=== PATIENT | female | born 1970 | race African-American/Black ===

== ENCOUNTER → 2016-11-19 | Outpatient (CLI) | payer OTHER ==
[~2016-11-19] MED LIST: HYDR-2768 PO; LOSA50TA PO; POTA-243 PO; TRAM100T19 PO; VERA120T3 PO
[2016-11-19 07:28] LABS: AUTOMATED NEUTROPHIL # 3.3 TH/MM3 (1.8-7.7); BASOPHIL % 0.4 % (0.0-2.0); EOSINOPHIL # 0.1 TH/MM3 (0-0.4); EOSINOPHIL % 2.2 % (0.0-4.0); HEMATOCRIT 35.6 % (35.0-46.0); HEMO FLAGS DIFF FINAL; LYMPH % 36.3 % (9.0-44.0); LYMPHOCYTE # 2.3 TH/MM3 (1.0-4.8); MEAN CORPUSCULAR HEMOGLOBIN 27.3 PG (27.0-34.0); MEAN CORPUSCULAR HGB CONC 32.9 % (32.0-36.0); MONO % 8.5 % (0.0-8.0); NEUT % 52.6 % (16.0-70.0); PLATELET COUNT 307 TH/MM3 (150-450); RED BLOOD COUNT 4.29 MIL/MM3 (4.00-5.30); RED CELL DISTRIBUTION WIDTH 13.7 % (11.6-17.2); WHITE BLOOD COUNT 6.3 TH/MM3 (4.0-11.0)
[2016-11-19 07:30] LABS: APTT (PATIENT) 28.7 SEC (24.3-30.1)
[2016-11-19 07:49] LABS: ALT (GPT) 21 U/L (10-53); ANION GAP 7 MEQ/L (5-15); AST (GOT) 9 U/L (15-37); BICARBONATE 29.9 MEQ/L (21.0-32.0); BLOOD UREA NITROGEN 12 MG/DL (7-18); CHLORIDE 105 MEQ/L (98-107); GLOMERULAR FILTRATION RATE 120 ML/MIN (>89); GLUCOSE,FASTING 102 MG/DL (74-99); POTASSIUM 3.8 MEQ/L (3.5-5.1); SODIUM (NA) 142 MEQ/L (136-145)
[2016-11-19 07:59] LABS: ALKALINE PHOSPHATASE 57 U/L (45-117); HDL CHOLESTEROL 90.7 MG/DL (40.0-60.0); LDL CHOLESTEROL 56 MG/DL (0-99); TOTAL BILIRUBIN ADULT 0.4 MG/DL (0.2-1.0)
[2016-11-19 12:06] LABS: HEMOGLOBIN A1b 0.7 %; HEMOGLOBIN F 0.7 %; HEMOGLOBIN LA1C 1.9 %; HEMOGLOBIN P3 3.3 %
== END ==
LOC: CLAB 06:55
PROVIDERS: ATTEND Family Medicine
DX: Z00.00 Encounter for general adult medical examination without abnormal findings (principal)
CPT/HCPCS: 36415; 80053; 80061; 83036; 84443; 85025; 85610; 85730

== ENCOUNTER 2017-06-03 19:58 | Emergency (ER) | payer OTHER ==
[2017-06-03 20:01] VITALS: BP 236/109; PULSE 80; RESP 20; TEMP 98.6; O2SAT 98
[2017-06-03 20:10] VITALS: BP 183/86; PULSE 78; RESP 16; O2SAT 97
[2017-06-03] MEDS ORDERED: ACETAMINOPHEN/HYDROcodone 325 MG/5 MG TAB PO ONE (20:15)
[2017-06-03] MEDS ORDERED: BUPIVACAINE HCL PF 0.5% 10 ML VIAL INFIL ONE (20:15)
[2017-06-03] MEDS ORDERED: LIDOCAINE HCL 1% 50 ML VIAL INFIL ONE (20:15)
--- NOTE | 2017-06-03 20:22 | PD ---
HPI Chief Complaint: Injury Time Seen by Provider: 20:07 Travel History International Travel<30 days: No Contact w/Intl Traveler<30days: No Traveled to known affect area: No History of Present Illness HPI Skin otherwise healthy 46 year-old woman who presents to the emergency department with right foot injury. She states she was cleaning a lawnmower when her foot went underneath the lawnmower. She has injuries to the tops of the first and second toes. She has otherwise been feeling generally well and healthy. This happened just prior to arrival. No other complaints. History Past Medical History Narrative Medical Hypertension : 2 Para: 2 Social History Alcohol Use: Yes (SOCIAL) Tobacco Use: No Allergies-Medications (Allergen,Severity, Reaction): Coded Allergies: No Known Allergies (Verified , 06/09/16) Reported Meds & Prescriptions Reported Meds & Active Scripts Active Reported Potassium Chloride ER (Potassium Chloride) 10 Meq Cap 10 Meq PO DAILY Verapamil ER (Verapamil HCl) 180 Mg Tab 180 Mg PO DAILY Losartan (Losartan Potassium) 50 Mg Tab 50 Mg PO DAILY Hydrochlorothiazide 25 Mg Tab 25 Mg PO DAILY Review of Systems Except as stated in HPI: all other systems reviewed are Neg Physical Exam Narrative GENERAL: Well-appearing 46 year-old woman, no acute distress. SKIN: Warm and dry. CARDIOVASCULAR: Warm and well perfused. RESPIRATORY: Normal rate and effort. MUSCULOSKELETAL: Focused examination of the right foot reveals that the right great toe has a laceration across the top of the nail the nail is missing, and the second toe also is missing the toenail. There is minimal trickling bleeding. There is no obvious bony deformity or other amputation. NEUROLOGICAL: Awake and alert. No gross deficits. Data Data Last Documented VS Vital Signs Date Time Temp Pulse Resp B/P Pulse Ox O2 Delivery O2 Flow Rate FiO2 06/03/17 20:01 98.6 80 20 236/109 98 Orders Foot, Complete (Pcr2cvv) (06/03/17 ) Acetamin-Hydrocod 325-5 Mg (Prosperity 5-325 (06/03/17 20:15) Lidocaine 1% Inj (50 Ml) (Xylocaine 1% I (06/03/17 20:15) Bupivacaine Pf 0.5% Inj (Marcaine Pf 0.5 (06/03/17 20:15) Iv Access Insert/Monitor (06/03/17 20:44) Ampicillin-Sulbactam Inj (Unasyn Inj) (06/03/17 20:45) Gelatin 12 Mm/7 Mm Top (Gelfoam 12 Mm/7 (06/03/17 21:30) MDM Medical Decision Making Medical Screen Exam Complete: Yes Emergency Medical Condition: Yes Differential Diagnosis Foot injury, toe injury, nail bed injury, other Narrative Course Medical decision making INITIAL: 46 year-old woman who presents to the emergency department complaining of right foot injury. She looks well. Injury appears to be soft tissue related to the top of the foot. We'll do an x-ray of the foot. We'll block the toes and wash them out really well. She may need nail bed laceration repair. FINAL: Patient with lawnmower injury to the distal first and second toe. She looks like she really just double the top layer of skin second toe. The nail fold and nail bed appears to be completely missing. She is soft tissue there. There is some trickling bleeding. There is no exposed bone. I irrigated the wound with copious amounts of sterile saline. We placed a Gelfoam pad on the top of both soft tissue injuries. Bulky dressing was applied. She will likely have some continued oozing. We'll keep the leg elevated for the next 48 hours. She was given a hard sole shoe. We'll place her on antibiotics. She had a dose of IV Unasyn here. We'll recommend that she follow-up with podiatry for repeat evaluation. Diagnosis Primary Impression: Soft tissue injury of left foot Additional Impression: Fracture of distal phalanx of toe of left foot Additional Instructions: Keep leg elevated above your heart for the next 48 hours. Change bandage once a day. Take antibiotics as prescribed. Take Lortab as needed for pain. Follow-up with Dr. Cary next week. Return to the emergency department for any significant ongoing bleeding, worsening pain, fevers or drainage from the wound, or any other new or worsening symptoms. Med/Other Pt SpecificInfo: Prescription(s) given Scripts Amoxicillin-Clavulanate (Augmentin)875-125 Mg Tab1 Tab PO BID 7 Days Ref 0 Prov:Ricardo Jenkins MD 06/03/17 Hydrocodone-Acetaminophen (Lortab)5-325 Mg Tab1-2 Tab PO Q6H PRN (PAIN) #20 TAB Prov:Ricardo Jenkins MD 06/03/17 Disposition: 01 DISCHARGE HOME Condition: Stable Ricardo Jenkins MD Jun 03, 2017 20:22
[2017-06-03] MEDS ORDERED: LOSA50TA PO (20:40)
[2017-06-03] MEDS ORDERED: HYDR25TA5 PO (20:40)
[2017-06-03] MEDS ORDERED: POTA10CA PO (20:40)
[2017-06-03] MEDS ORDERED: VERA1TAB10 PO (20:40)
--- NOTE | 2017-06-03 20:40 | RADRPT ---
EXAM DATE/TIME: 06/03/2017 20:30 [facility] COMPARISON: No previous studies available for comparison. INDICATIONS : Lawnmower injury. Laceration to top of foot. MEDICAL HISTORY : None. SURGICAL HISTORY : None. ENCOUNTER: Initial ACUITY: 1 day PAIN SCORE: 9/10 LOCATION: Right lateral FINDINGS: There is comminuted fracturing of the first digit distal phalangeal tuft and neck with associated sof t tissue injury. There is plantar displacement of the distal fracture fragments by one shaft diameter and overriding. CONCLUSION: Comminuted and displaced fracture the first digit distal phalanx with associated soft tissue injury. J Luis Mckeon MD on June 03, 2017 at 20:38 Board Certified Radiologist. This report was verified electronically.
[2017-06-03] MEDS ORDERED: AMPICILLIN-SULBACTAM INJ 3 GM in SODIUM CHLORIDE 0.9% INJ 100 ML IV ONE (20:45)
[2017-06-03] MEDS ORDERED: GELATIN 12 MM/7 MM FOAM TOPICAL ONE (21:30)
[2017-06-03] MEDS ORDERED: AUGM875T3 PO (21:35)
[2017-06-03] MEDS ORDERED: HYDR-3533 PO (21:35)
[2017-06-03] MEDS ORDERED: TETANUS/DIPHTHERIA TOXOID ADULT 0.5 ML VIAL IM ONE (21:45)
[2017-06-03 22:36] VITALS: BP 175/72
== END 2017-06-03 22:41 | disposition home or self-care (01) ==
LOC: PHED 19:58
DX: S92.422A Displaced fracture of distal phalanx of left great toe, initial encounter for closed fracture (principal); X58.XXXA Exposure to other specified factors, initial encounter; Y93.89 Activity, other specified; Z23 Encounter for immunization
CPT/HCPCS: 73630; 90471; 90714; 96365; 99284; J0295; L3260

== ENCOUNTER 2017-06-05 16:33 | Emergency (ER) | payer OTHER ==
[~2017-06-05] VITALS: Ht 167.6 cm; Wt 96.5 kg
[~2017-06-05 16:33] MED LIST changes: +AUGM875T3 PO; -HYDR-2768 PO; +HYDR-3533 PO; +HYDR25TA5 PO; -POTA-243 PO; +POTA10CA PO; -TRAM100T19 PO; -VERA120T3 PO; +VERA1TAB10 PO
[2017-06-05 16:39] VITALS: BP_SYST 210; BP_SYST 216; BP_DIAS 102; BP_DIAS 105; PULSE 65; RESP 14; TEMP 98.2; O2SAT 100
--- NOTE | 2017-06-05 17:31 | PD ---
HPI Chief Complaint: Wound/Suture/Staple Re-Check Time Seen by Provider: 17:11 Travel History International Travel<30 days: No Contact w/Intl Traveler<30days: No Traveled to known affect area: No History of Present Illness HPI 46-year-old female is seen in emergency room for recheck. Patient was seen in emergency room 2 days ago with open fracture right big toe and soft tissue injury to right second toe. The Injury from a lawnmower. Patient was given Unasyn IV and prescription for Augmentin and hydrocodone. Gelfoam and dressing applied to the right first and second toes. Patient states that she has some oozing blood from the wound for the past 2 days. Patient has been taking antibiotics as directed. PFSH Past Medical History Heart Rhythm Problems: No Cancer: No Cardiac Catheterization: No Cardiovascular Problems: No High Cholesterol: No Congestive Heart Failure: No Diabetes: No Diminished Hearing: No Endocrine: No Gastrointestinal Disorders: No Genitourinary: No Hepatitis: No Hiatal Hernia: No Heparin Induced Thrombocytopen: No Hypertension: Yes Immune Disorder: No Musculoskeletal: Yes (BACK) Neurologic: No Psychiatric: No Reproductive: Yes Respiratory: No Thyroid Disease: No Tetanus Vaccination: < 5 Years Influenza Vaccination: No ?: Not : 2 Para: 2 Past Surgical History AICD: No Body Medical Devices: NONE PER PT Coronary Artery Bypass Graft: No Hysterectomy: Yes Joint Replacement: No Oral Surgery: Yes (TONSILLECTOMY) Pacemaker: No Tonsillectomy: Yes Other Surgery: Yes (BREAST REDUCTION) Social History Alcohol Use: Yes (SOCIAL) Tobacco Use: No Substance Use: No Allergies-Medications (Allergen,Severity, Reaction): Coded Allergies: No Known Allergies (Verified , 06/05/17) Reported Meds & Prescriptions Reported Meds & Active Scripts Active Augmentin (Amoxicillin-Clavulanate) 875-125 Mg Tab 1 Tab PO BID 7 Days Lortab (Hydrocodone-Acetaminophen) 5-325 Mg Tab 1-2 Tab PO Q6H PRN Reported Potassium Chloride ER (Potassium Chloride) 10 Meq Cap 10 Meq PO DAILY Verapamil ER (Verapamil HCl) 180 Mg Tab 180 Mg PO DAILY Losartan (Losartan Potassium) 50 Mg Tab 50 Mg PO DAILY Hydrochlorothiazide 25 Mg Tab 25 Mg PO DAILY Review of Systems General / Constitutional: No: Fever Eyes: No: Visual changes HENT: No: Headaches Cardiovascular: No: Chest Pain or Discomfort Respiratory: No: Shortness of Breath Gastrointestinal: No: Abdominal Pain Genitourinary: No: Dysuria Musculoskeletal: Positive: Pain Skin: No Rash Neurologic: No: Weakness Psychiatric: No: Depression Endocrine: No: Polydipsia Hematologic/Lymphatic: No: Easy Bruising Physical Exam Narrative GENERAL: Well-nourished, well-developed patient. SKIN: Focused skin assessment warm/dry. HEAD: Normocephalic. EYES: No scleral icterus. No injection or drainage. NECK: Supple, trachea midline. No JVD or lymphadenopathy. CARDIOVASCULAR: Regular rate and rhythm without murmurs, gallops, or rubs. RESPIRATORY: Breath sounds equal bilaterally. No accessory muscle use. GASTROINTESTINAL: Abdomen soft, non-tender, nondistended. MUSCULOSKELETAL: No cyanosis, or edema. BACK: Nontender without obvious deformity. No CVA tenderness. Data Data Last Documented VS Vital Signs Date Time Temp Pulse Resp B/P Pulse Ox O2 Delivery O2 Flow Rate FiO2 06/05/17 16:39 98.2 65 14 216/105 100 Room Air 210/102 Orders Lidocaine 1% Inj (50 Ml) (Xylocaine 1% I (06/05/17 17:45) Bupivacaine Pf 0.5% Inj (Marcaine Pf 0.5 (06/05/17 17:45) Ciprofloxacin (Cipro) (06/05/17 18:15) Wound Culture And Gram Stain (06/05/17 18:17) [facility] Medical Decision Making Medical Screen Exam Complete: Yes Emergency Medical Condition: Yes Medical Record Reviewed: Yes Differential Diagnosis Differential diagnosis including compound fracture, soft tissue injury. Narrative Course 46-year-old female with right big toe and second toe injury. I spoke with Dr. Cary. Advised Augmentin and Cipro. Follow-up in the office. Wound culture obtained from the right big toe. Diagnosis Primary Impression: Soft tissue injury of toe Qualified Code: S99.921D - Soft tissue injury of toe, right, subsequent encounter Additional Impression: Fracture of right great toe Qualified Code: S92.421D - Closed displaced fracture of distal phalanx of right great toe with routine healing, subsequent encounter Patient Instructions: General Instructions Additional Instructions: Daily wound clean and dry. Take antibiotics including Cipro and Augmentin as directed. Follow-up with geriatric assistant. Med/Other Pt SpecificInfo: Prescription(s) given Scripts Ciprofloxacin (Cipro)500 Mg Qat630 Mg PO BID #20 TAB Prov:Osei Bal MD 06/05/17 Disposition: 01 DISCHARGE HOME Condition: Stable Osei Bal MD Jun 05, 2017 17:31
[2017-06-05] MEDS ORDERED: LIDOCAINE HCL 1% 50 ML VIAL INFIL ONE (17:45)
[2017-06-05] MEDS ORDERED: BUPIVACAINE HCL PF 0.5% 10 ML VIAL INFIL ONE (17:45)
[2017-06-05] MEDS ORDERED: CIPROFLOXACIN 500 MG TAB PO ONE (18:15)
[2017-06-05] MEDS ORDERED: CIPR-9 PO (18:40)
[2017-06-05 18:54] VITALS: BP 198/97; PULSE 64; RESP 16; O2SAT 100
--- NOTE | 2017-06-05 20:20 | EKG ---
Date Performed: 06/05/2017 Time Performed: 18:15:22 PTAGE: 46 years EKG: Sinus rhythm NORMAL ECG NO PREVIOUS TRACING DOCTOR: Olaf Angeles Interpretating Date/Time 06/05/2017 20:18:36
== END 2017-06-05 19:09 | disposition home or self-care (01) ==
LOC: PHED 16:33
DX: S99.921D Unspecified injury of right foot, subsequent encounter (principal); S92.421D Displaced fracture of distal phalanx of right great toe, subsequent encounter for fracture with routine healing; B96.89 Other specified bacterial agents as the cause of diseases classified elsewhere; I10 Essential (primary) hypertension; Z87.39 Personal history of other diseases of the musculoskeletal system and connective tissue; W45.8XXD Other foreign body or object entering through skin, subsequent encounter
CPT/HCPCS: 87070; 87077; 87186; 87205; 93005; 99283

== ENCOUNTER 2017-08-28 18:36 | Emergency (ER) | payer OTHER ==
[~2017-08-28] VITALS: Ht 167.6 cm; Wt 93.4 kg
[~2017-08-28 18:36] MED LIST changes: +CIPR-9 PO
[2017-08-28 18:45] VITALS: BP 181/89; PULSE 88; RESP 16; TEMP 98.3; O2SAT 100
[2017-08-28] MEDS ORDERED: SODIUM CHLOR 0.9% 1000 ML INJ 1,000 ML IV SCH (20:01)
[2017-08-28] MEDS ORDERED: ONDANSETRON HCL 4 MG/2 ML VIAL IVP ONE (20:15)
[2017-08-28] MEDS: SODIUM CHLORIDE 0.9% FLUSH 10 ML FLUSH IV FLUSH PRN ×2 (20:32→21:12)
[2017-08-28 20:35] VITALS: O2SAT 97
[2017-08-28 20:36] LABS: GLUCOSE,URINE NEG (NEG); KETONE, URINE 15 mg/dL (NEG); NITRITE,URINE NEG (NEG)
[2017-08-28 20:40] LABS: AUTOMATED NEUTROPHIL # 4.1 TH/MM3 (1.8-7.7); BASOPHIL % 0.4 % (0.0-2.0); BLOOD, URINE TRACE (NEG); EOSINOPHIL # 0.2 TH/MM3 (0-0.4); HEMATOCRIT 39.6 % (35.0-46.0); HEMO FLAGS DIFF FINAL; LYMPH % 38.7 % (9.0-44.0); LYMPHOCYTE # 3.2 TH/MM3 (1.0-4.8); MEAN CELL VOLUME 82.1 FL (80.0-100.0); MEAN CORPUSCULAR HGB CONC 31.6 % (32.0-36.0); MONO % 8.2 % (0.0-8.0); NEUT % 50.7 % (16.0-70.0); PLATELET COUNT 433 TH/MM3 (150-450); RED BLOOD COUNT 4.82 MIL/MM3 (4.00-5.30); RED CELL DISTRIBUTION WIDTH 13.4 % (11.6-17.2); WHITE BLOOD COUNT 8.2 TH/MM3 (4.0-11.0)
[2017-08-28 20:41] LABS: MUCUS URINE MOD /lpf (OCC); URINE COLOR AMBER (YELLW/STRAW)
[2017-08-28 20:42] LABS: CALCIUM OXALATE CRYSTALS,URINE MOD /hpf; SQUAMOUS EPITHELIAL CELL URINE > 8 /hpf (0-5)
[2017-08-28 20:44] LABS: COMMENT (UR) CULT NOT INDICATED; CULTURE IF INDICATED CULT NOT INDICATED; RBC, URINE 0-3 /hpf (0-3)
[2017-08-28 21:07] VITALS: BP 149/89; PULSE 73; RESP 18; TEMP 98.2; O2SAT 99
[2017-08-28 21:25] LABS: BICARBONATE 31.3 MEQ/L (21.0-32.0)
[2017-08-28 21:27] LABS: POTASSIUM 2.9 MEQ/L (3.5-5.1)
[2017-08-28] MEDS ORDERED: POTASSIUM CHLORIDE 20 MEQ CONTROLLED RELEASE TAB PO ONE (21:30)
--- NOTE | 2017-08-28 21:31 | PD ---
HPI Chief Complaint: General Weakness Time Seen by Provider: 19:52 Travel History International Travel<30 days: No Contact w/Intl Traveler<30days: No Traveled to known affect area: No History of Present Illness HPI 46 yo F c/o weakness for the past week. pt had influenza like many of family members. symptoms most c/w fatigue, less so with weakness. everyone else got better however patient has felt persistently weak, nauseated, and with concern for hypok and dehydration. no fever. no numbness/tinging. PFSH Past Medical History Heart Rhythm Problems: No Cancer: No Cardiac Catheterization: No Cardiovascular Problems: No High Cholesterol: No Congestive Heart Failure: No Diabetes: No Diminished Hearing: No Endocrine: No Gastrointestinal Disorders: No Genitourinary: No Hepatitis: No Hiatal Hernia: No Heparin Induced Thrombocytopen: No Hypertension: Yes Immune Disorder: No Musculoskeletal: Yes (BACK) Neurologic: No Psychiatric: No Reproductive: Yes Respiratory: No Thyroid Disease: No ?: Not : 2 Para: 2 Past Surgical History AICD: No Body Medical Devices: NONE PER PT Coronary Artery Bypass Graft: No Hysterectomy: Yes Joint Replacement: No Oral Surgery: Yes (TONSILLECTOMY) Pacemaker: No Tonsillectomy: Yes Other Surgery: Yes (BREAST REDUCTION) Social History Alcohol Use: Yes (SOCIAL) Tobacco Use: No Substance Use: No Allergies-Medications (Allergen,Severity, Reaction): Coded Allergies: No Known Allergies (Verified , 06/05/17) Reported Meds & Prescriptions Reported Meds & Active Scripts Active Lortab (Hydrocodone-Acetaminophen) 5-325 Mg Tab 1-2 Tab PO Q6H PRN Reported Potassium Chloride ER (Potassium Chloride) 10 Meq Cap 10 Meq PO DAILY Verapamil ER (Verapamil HCl) 180 Mg Tab 180 Mg PO DAILY Losartan (Losartan Potassium) 50 Mg Tab 50 Mg PO DAILY Hydrochlorothiazide 25 Mg Tab 25 Mg PO DAILY Review of Systems Except as stated in HPI: all other systems reviewed are Neg General / Constitutional: No: Fever Cardiovascular: No: Chest Pain or Discomfort Physical Exam Narrative GENERAL: 46 yo F, NAD, WNWD SKIN: Warm and dry. HEAD: Atraumatic. Normocephalic. EYES: Pupils equal and round. No scleral icterus. No injection or drainage. ENT: No nasal bleeding or discharge. Mucous membranes pink and moist. NECK: Trachea midline. No JVD. CARDIOVASCULAR: Regular rate and rhythm. RESPIRATORY: No accessory muscle use. Clear to auscultation. Breath sounds equal bilaterally. GASTROINTESTINAL: Abdomen soft, non-tender, nondistended. Hepatic and splenic margins not palpable. MUSCULOSKELETAL: Extremities without clubbing, cyanosis, or edema. No obvious deformities. NEUROLOGICAL: Awake and alert. No obvious cranial nerve deficits. Motor grossly within normal limits. Five out of 5 muscle strength in the arms and legs. Normal speech. PSYCHIATRIC: Appropriate mood and affect; insight and judgment normal. Data Data Last Documented VS Vital Signs Date Time Temp Pulse Resp B/P (MAP) Pulse Ox O2 Delivery O2 Flow Rate FiO2 08/28/17 21:08 Room Air 08/28/17 21:07 98.2 73 18 149/89 (109) 99 VS normal Orders Orders Basic Metabolic Panel (Bmp) (08/28/17 20:01) Complete Blood Count With Diff (08/28/17 20:01) Urinalysis - C+S If Indicated (08/28/17 20:) Iv Access Insert/Monitor (08/28/17 20:) Ecg Monitoring (08/28/17 20:01) Oximetry (08/28/17 20:01) Ondansetron Inj (Zofran Inj) (08/28/17 20:15) Sodium Chlor 0.9% 1000 Ml Inj (Ns 1000 M (08/28/17 20:01) Sodium Chloride 0.9% Flush (Ns Flush) (08/28/17 20:15) Potassium Chloride (Kcl) (08/28/17 21:30) Labs Laboratory Tests Test 08/28/17 20:15 White Blood Count 8.2 TH/MM3 Red Blood Count 4.82 MIL/MM3 Hemoglobin 12.5 GM/DL Hematocrit 39.6 % Mean Corpuscular Volume 82.1 FL Mean Corpuscular Hemoglobin 26.0 PG Mean Corpuscular Hemoglobin Concent 31.6 % Red Cell Distribution Width 13.4 % Platelet Count 433 TH/MM3 Mean Platelet Volume 8.9 FL Neutrophils (%) (Auto) 50.7 % Lymphocytes (%) (Auto) 38.7 % Monocytes (%) (Auto) 8.2 % Eosinophils (%) (Auto) 2.0 % Basophils (%) (Auto) 0.4 % Neutrophils # (Auto) 4.1 TH/MM3 Lymphocytes # (Auto) 3.2 TH/MM3 Monocytes # (Auto) 0.7 TH/MM3 Eosinophils # (Auto) 0.2 TH/MM3 Basophils # (Auto) 0.0 TH/MM3 CBC Comment DIFF FINAL Differential Comment Urine Color MARI Urine Turbidity SLIGHT Urine pH 6.0 Urine Specific [place] 1.031 Urine Protein 30 mg/dL Urine Glucose (UA) NEG mg/dL Urine Ketones 15 mg/dL Urine Occult Blood TRACE Urine Nitrite NEG Urine Bilirubin NEG Urine Leukocyte Esterase NEG Urine RBC 0-3 /hpf Urine Squamous Epithelial Cells > 8 /hpf Urine Calcium Oxalate Crystals MOD /hpf Urine Hyaline Casts 6-9 /lpf Urine Mucus MOD /lpf Microscopic Urinalysis Comment CULT NOT INDICATED Blood Urea Nitrogen 19 MG/DL Creatinine 1.10 MG/DL Random Glucose 111 MG/DL Calcium Level 9.4 MG/DL Sodium Level 139 MEQ/L Potassium Level 2.9 MEQ/L Chloride Level 100 MEQ/L Carbon Dioxide Level 31.3 MEQ/L Anion Gap 8 MEQ/L Estimat Glomerular Filtration Rate 65 ML/MIN MDM Medical Decision Making Medical Screen Exam Complete: Yes Emergency Medical Condition: Yes Medical Record Reviewed: Yes Differential Diagnosis hypok, dehydration, uti Narrative Course CBC & BMP Diagram 08/28/17 20:15 Calcium Level 9.4 UA: no UTI Potassium replenished Diagnosis Primary Impression: Hypokalemia Additional Impression: Fatigue Qualified Codes: R53.83 - Other fatigue Referrals: Primary Care Physician 2 days Additional Instructions: You have a choice when it comes to health care, and we are glad that you chose [facility]. Hopefully, we have met your expectations on today's visit. You are welcome to return to [facility] at any time, as we are committed to meeting the health care needs of our community. Med/Other Pt SpecificInfo: Prescription(s) given, No Change to Meds Disposition: 01 DISCHARGE HOME Condition: Stable Solo Sweeney MD Aug 28, 2017 21:31
[2017-08-28 22:24] VITALS: BP 142/83; PULSE 72; RESP 18; TEMP 98; O2SAT 99
== END 2017-08-28 22:32 | disposition home or self-care (01) ==
LOC: PHED 18:36
DX: E87.6 Hypokalemia (principal); R53.1 Weakness; I10 Essential (primary) hypertension
CPT/HCPCS: 80048; 81001; 85025; 96361; 96374; 99284; J2405; J7030

== ENCOUNTER → 2017-12-13 | Outpatient (CLI) | payer OTHER ==
[~2017-12-13] MED LIST changes: -AUGM875T3 PO; -CIPR-9 PO
[2017-12-13 07:53] LABS: AUTOMATED NEUTROPHIL # 3.2 TH/MM3 (1.8-7.7); BASOPHIL # 0.1 TH/MM3 (0-0.2); EOSINOPHIL # 0.3 TH/MM3 (0-0.4); EOSINOPHIL % 4.1 % (0.0-4.0); HEMATOCRIT 36.1 % (35.0-46.0); HEMOGLOBIN 11.7 GM/DL (11.6-15.3); LYMPH % 34.2 % (9.0-44.0); LYMPHOCYTE # 2.1 TH/MM3 (1.0-4.8); MEAN CELL VOLUME 83.2 FL (80.0-100.0); MEAN CORPUSCULAR HEMOGLOBIN 26.9 PG (27.0-34.0); MEAN CORPUSCULAR HGB CONC 32.3 % (32.0-36.0); MEAN PLATELET VOLUME 8.7 FL (7.0-11.0); MONO % 8.6 % (0.0-8.0); MONOCYTE # 0.5 TH/MM3 (0-0.9); NEUT % 52.1 % (16.0-70.0); PLATELET COUNT 285 TH/MM3 (150-450); RED BLOOD COUNT 4.34 MIL/MM3 (4.00-5.30); RED CELL DISTRIBUTION WIDTH 13.7 % (11.6-17.2); WHITE BLOOD COUNT 6.1 TH/MM3 (4.0-11.0)
[2017-12-13 08:21] LABS: ALBUMIN 3.9 GM/DL (3.4-5.0); ALT (GPT) 19 U/L (10-53); AST (GOT) 11 U/L (15-37); BICARBONATE 31.5 MEQ/L (21.0-32.0); BLOOD UREA NITROGEN 13 MG/DL (7-18); CALCIUM 9.1 MG/DL (8.5-10.1); CHLORIDE 102 MEQ/L (98-107); CHOLESTEROL 155 MG/DL (120-200); CREATININE 0.72 MG/DL (0.50-1.00); GLOMERULAR FILTRATION RATE 106 ML/MIN (>89); GLUCOSE,FASTING 97 MG/DL (74-99); MAGNESIUM 2.1 MG/DL (1.5-2.5); SODIUM (NA) 139 MEQ/L (136-145); TRIGLYCERIDES 35 MG/DL (42-150)
[2017-12-13 08:46] LABS: ALKALINE PHOSPHATASE 63 U/L (45-117); CHOLESTEROL/ HDL RATIO 1.91 RATIO; FOLATE 11.4 NG/ML (3.1-17.5); LDL CHOLESTEROL 67 MG/DL (0-99); TOTAL BILIRUBIN ADULT 0.4 MG/DL (0.2-1.0); TOTAL PROTEIN 7.8 GM/DL (6.4-8.2)
[2017-12-13 16:29] LABS: HEMOGLOBIN A1C 4.9 % (4.3-6.0)
== END ==
LOC: CLAB 07:31
PROVIDERS: ATTEND Family Medicine
DX: Z00.00 Encounter for general adult medical examination without abnormal findings (principal)
CPT/HCPCS: 36415; 80053; 80061; 82306; 82607; 82746; 83036; 83735; 84443; 85025

== ENCOUNTER → 2018-04-13 | Day surgery (SDC) | payer OTHER ==
[~2018-04-13] MED LIST changes: +AMLO10TA2 PO; +CLON0.1T PO; +IBUP-1129; +LIDOCAINE HCL 1% 30 ML VIAL INFIL ONE; +MIDAZOLAM HCL 2 MG/2 ML VIAL IV ONE; +PROPOFOL 200 MG/20 ML AMP IV ONE; +SODIUM CHLORIDE 0.9% 10 ML VIAL ONE; +TRIAMCINOLONE ACETONIDE 40 MG/ML VIAL NERV BLOCK ONE; +methylPREDNISolone ACETATE 80 MG/ML VIAL ONE
--- NOTE | 2018-04-13 10:29 | M6 ---
cc: Shelley Camara MD DATE: 04/13/2018 DATE OF PROCEDURE: 04/13/2018 PROCEDURE PERFORMED: Fluoroscopically guided L5-S1 interlaminar epidural steroid injection. History and physical was completed and signed. Consent was signed. Procedure site was marked. Medications were listed and reconciled. Pain score was recorded. Allergies were noted. Time out was taken. Fluoroscopy time was recorded where applicable. Sedation was administered or directed by Dr. Camara. The patient was given oxygen. The patient was monitored by a registered nurse. Total procedure time was greater than 15 minutes. IV was started. Blood pressure cuff, pulse oximeter and EKG were applied. The patient was placed in the prone position on a Chicho table, sedated with small amounts of Propofol titrated to effect. Vital signs were monitored and remained stable throughout the procedure. The lumbar area was prepped with alcohol and 10% Betadine solution and draped with sterile drapes. Fluoroscopy was used to visualize the L5-S1 interlaminar space. The skin was infiltrated with 1% Xylocaine, using a 27-gauge needle. Then, a 3.5-inch, 18-gauge Wan needle was advanced using fluoroscopic guidance and the loss of resistance technique into the epidural space at L5-S1, slightly to the right of the midline. There was negative aspiration for blood or any other type of fluid, and the patient was given 10 mL of 0.5% Xylocaine and 80 mg of Depo-Medrol. Following this, the patient was taken to the recovery room with stable vital signs, neurologically intact. MD CANDE Pérez/DIONNA , 10:17 AM , 10:29 AM
== END | disposition home or self-care (01) ==
LOC: PHSDC 08:57
PROVIDERS: ATTEND Pain Medicine Interventional Pain Medicine
DX: M54.16 Radiculopathy, lumbar region (principal); I10 Essential (primary) hypertension
CPT/HCPCS: 62323; 99152; J1040; J2250; J3301